=== PATIENT | male | born 1960 | race Caucasian/White ===

== ENCOUNTER 2019-07-20 13:42 | Emergency (ER) | payer OTHER ==
[2019-07-20] MEDS ORDERED: Sodium Chloride 0.9% 10 ML Syringe FLUSH PRN (14:59)
--- NOTE | 2019-07-20 15:08 | CR ---
Left femur: AP and lateral views of the left femur were obtained. Comparison: No earlier studies. Basicervical fracture is noted within the femoral neck. Medial joint space narrowing is noted within the knee. Bony irregularity is noted off the ischial tuberosity on the lateral view which appears to be due to fracture although age of this is indeterminate. No additional abnormality is seen. Impression: 1. Basicervical fracture within left femoral neck. 2. Fracture felt to be present within the ischial tuberosity seen on the lateral view, age of this is indeterminate. 3. Degenerative change within the knee. Diagnostic code #3 This report was dictated in [place] Standard Time
--- NOTE | 2019-07-20 15:08 | CR ---
Pelvis and left hip: AP view of the pelvis was obtained as well as AP and lateral views of the left hip. Basicervical fracture is seen within the left hip. Lateral view again shows a fracture within the fascial tuberosity. Mild joint space narrowing is seen within both hips. Sacroiliac joints are normal. Mild disc space narrowing and endplate spurring is seen within the lower lumbar spine. No additional abnormality is seen. Impression: 1. Basicervical fracture within the left hip. 2. Fracture within the initial tuberosity, age is indeterminate and please correlate with the patient's symptoms. 3. Mild degenerative change as noted above. Diagnostic code #3 This report was dictated in [place] Standard Time
--- NOTE | 2019-07-20 15:11 | EDM.PDOC ---
ED HPI GENERAL MEDICAL PROBLEM - General Chief Complaint: Lower Extremity Injury/Pain Stated Complaint: LEFT LEG INJURY Time Seen by Provider: 07/20/19 14:02 Source of Information: Reports: Patient, RN Notes Reviewed History Limitations: Reports: No Limitations - History of Present Illness INITIAL COMMENTS - FREE TEXT/NARRATIVE: Patient is a 58-year-old male who presents to the ED for the evaluation of left hip pain. The patient notes that around 8 this morning, he slipped on the ice, and fell onto his left hip. He states he had immediate pain, and crawled inside and crawled onto the couch at this time. He has not used any pain relievers at home, nor has he had any ice to the area as well. He states it is hard to walk on the hip, as it is very painful to do so. When he is sitting there, however the pain is at a 2 out of 10. Patient had some water at around 1 PM, he is not on any blood thinners, and he has not had any food today. Patient denies any cardiac or respiratory issues that he has, he has had a splenectomy, but denies any other surgeries. Left Hip Pain Score (Numeric/FACES): 3 - Related Data Allergies Allergy/AdvReac Type Severity Reaction Status Date / Time No Known Allergies Allergy Verified 07/20/19 14:07 Home Meds: Home Meds . [No Known Home Meds] 07/20/19 [History] Past Medical History Endocrine/Metabolic History: Reports: Hypothyroidism - Past Surgical History GI Surgical History: Reports: Other (See Below) Other GI Surgeries/Procedures: splenectomy, liver contusion & laceration Social & Family History - Family History Family Medical History: Noncontributory - Tobacco Use Smoking Status *Q: Never Smoker Second Hand Smoke Exposure: No - Caffeine Use Caffeine Use: Reports: Coffee - Recreational Drug Use Recreational Drug Use: No Review of Systems - Review of Systems Review Of Systems: Comprehensive ROS is negative, except as noted in HPI. Musculoskeletal: Reports: Joint Pain (Left hip pain) Skin: Denies: Bruising Neurological: Denies: Numbness, Tingling ED EXAM, GENERAL - Physical Exam Exam: See Below Exam Limited By: No Limitations General Appearance: Alert, WD/WN, No Apparent Distress Eye Exam: Bilateral Eye: EOMI, Normal Inspection, PERRL Nose: Normal Inspection Throat/Mouth: Normal Inspection, Normal Lips, Normal Teeth, Normal Gums, Normal Oropharynx, Normal Voice, No Airway Compromise Head: Atraumatic, Normocephalic Neck: Normal Inspection Respiratory/Chest: No Respiratory Distress, Lungs Clear, Normal Breath Sounds, No Accessory Muscle Use, Chest Non-Tender Cardiovascular: Normal Peripheral Pulses, Regular Rate, Rhythm, No Edema, No Murmur Peripheral Pulses: 3+: Radial (L), Radial (R), Dorsalis Pedis (L), Dorsalis Pedis (R) GI/Abdominal: Normal Bowel Sounds, Soft, Non-Tender, No Distention, No Mass Back Exam: Normal Inspection Extremities: Normal Inspection, Normal Capillary Refill, Limited Range of Motion (of left leg d/t pain). No: Pedal Edema, Joint Swelling Neurological: Alert, Oriented, Normal Cognition, No Motor/Sensory Deficits Psychiatric: Normal Affect, Normal Mood Skin Exam: Warm, Dry, Intact, Normal Color, No Rash EKG INTERPRETATION EKG Date: 07/20/19 Time: 15:29 Rhythm: Other (regular rhythm with junctional rhythm of p wave on top of t waves V2) Rate (Beats/Min): 112 [place]: LAD-Left [place] Deviation Comparison: NA - No Prior EKG EKG Interpretation Comments: Regular rhythm with junctional rhythm with P waves on top of T waves V2, first- degree AV block, QTC prolonged at 530, and LAD and -12. There was no prior EKG to compare to. This was reviewed with Dr. Gutierrez. Course - Vital Signs Last Recorded V/S: Last Vital Signs Temp 98.6 F 07/20/19 14:02 Pulse 97 07/20/19 14:02 Resp 16 07/20/19 14:02 BP 189/84 H 07/20/19 14:02 Pulse Ox 94 L 07/20/19 14:02 - Orders/Labs/Meds Orders: Active Orders 24 hr Category Date Time Status EKG Documentation Completion [RC] STAT Care 07/20/19 15:00 Ordered Peripheral IV Care [RC] . DIRECTED Care 07/20/19 15:00 Ordered CBC WITH AUTO DIFF [HEME] Stat Lab 07/20/19 14:59 Ordered COMPREHENSIVE METABOLIC PN,CMP [CHEM] Stat Lab 07/20/19 14:59 Ordered INR,PT,PROTHROMBIN TIME [COAG] Stat Lab 01/02/20 14:59 Ordered PTT,PARTIAL THROMBOPLSTIN TIME [COAG] Stat Lab 07/20/19 14:59 Ordered UA RFX MARIE AND CULT IF INDIC [URIN] Stat Lab 07/20/19 14:59 Ordered Sodium Chloride 0.9% [Saline Flush] Med 07/20/19 14:59 Ordered 10 ml FLUSH ASDIRECTED PRN Peripheral IV Insertion Adult [OM.PC] Stat Oth 07/20/19 14:59 Ordered Medication Orders Sodium Chloride (Saline Flush) 10 ml FLUSH ASDIRECTED PRN PRN Reason: Keep Vein Open Meds: Medications Generic Name Dose Route Start Last Admin Trade Name Freq PRN Reason Stop Dose Admin Sodium Chloride 10 ml 07/20/19 14:59 Saline Flush FLUSH ASDIRECTED PRN Keep Vein Open - Re-Assessments/Exams Free Text/Narrative Re-Assessment/Exam: 07/20/19 15:09 Patient presents to the ED for the evaluation of a left hip injury. Did order femur x-rays and left hip x-rays to be done, and this did demonstrate a femoral neck fracture of the left femur. Otherwise there are no abnormalities noted at the distal femur. These were reviewed by Dr. Gutierrez and myself. At this time we do not have Ortho coverage, so the patient will need to be transferred to [place] for management. I did order EKG, chest x-ray, IV be placed along with a CBC, CMP, PTT, PT/INR, UA for preop evaluation. Patient is not having any pain at this time, did not request any medications, however as he will need to be taken to [place] for management, he will likely need medications beforehand. Family would be carpal taking him via private vehicle if possible. At this time the patient's vitals are stable, and I do believe this would be an okay thing to do. Will call [facility] for further management and suggestions. 07/20/19 15:49 Dr. Jamison, orthopedic specialists at [facility] does except for management of the patient, requested the patient still stay nothing by mouth. Labs have been obtained, will give the patient some IV medication to make sure his pain level is okay during transfer, will fax lab results as we get them resulted back. EKG does show a junctional rhythm, there was no prior EKG to compare to. QT was prolonged, but there is no sign of acute ischemic change. Chest x-ray is within normal limits. Departure - Departure Time of Disposition: 15:51 Disposition: DC/Tfer to Acute Hospital 02 Condition: Fair Clinical Impression: Femoral neck fracture Qualifiers: Encounter type: initial encounter Fracture type: closed Laterality: left Qualified Code(s): S72.002A - Fracture of unspecified part of neck of left femur , initial encounter for closed fracture - Discharge Information *PRESCRIPTION DRUG MONITORING PROGRAM REVIEWED*: No *COPY OF PRESCRIPTION DRUG MONITORING REPORT IN PATIENT HEVER: No Referrals: PCP,None [Primary Care Provider] - Forms: ED Department Discharge Additional Instructions: You were evaluated in the ER today regarding your left hip injury. X-rays were taken, and demonstrated a femoral fracture of the left femur. You will need to present to [facility] in [place] for further management and orthopedic surgery as deemed necessary by the orthopedic surgeon, after your discharge from the hospital, you are to proceed directly to [place] for further management. Do not eat or drink anything on the way to [place], as you will be going to surgery. Sepsis Event Note - Evaluation Sepsis Screening Result: No Definite Risk - Focused Exam Vital Signs: Vital Signs Temp Pulse Resp BP Pulse Ox 07/20/19 14:02 98.6 F 97 16 189/84 H 94 L Date Exam was Performed: 07/20/19 Time Exam was Performed: 15:46 - My Orders Last 24 Hours: My Active Orders 07/20/19 14:59 CBC WITH AUTO DIFF [HEME] Stat COMPREHENSIVE METABOLIC PN,CMP [CHEM] Stat INR,PT,PROTHROMBIN TIME [COAG] Stat PTT,PARTIAL THROMBOPLSTIN TIME [COAG] Stat UA RFX MARIE AND CULT IF INDIC [URIN] Stat Sodium Chloride 0.9% [Saline Flush] 10 ml FLUSH ASDIRECTED PRN Peripheral IV Insertion Adult [OM.PC] Stat 07/20/19 15:00 EKG Documentation Completion [RC] STAT Peripheral IV Care [RC] . DIRECTED - Assessment/Plan Last 24 Hours: My Active Orders 07/20/19 14:59 CBC WITH AUTO DIFF [HEME] Stat COMPREHENSIVE METABOLIC PN,CMP [CHEM] Stat INR,PT,PROTHROMBIN TIME [COAG] Stat PTT,PARTIAL THROMBOPLSTIN TIME [COAG] Stat UA RFX MARIE AND CULT IF INDIC [URIN] Stat Sodium Chloride 0.9% [Saline Flush] 10 ml FLUSH ASDIRECTED PRN Peripheral IV Insertion Adult [OM.PC] Stat 07/20/19 15:00 EKG Documentation Completion [RC] STAT Peripheral IV Care [RC] . DIRECTED
--- NOTE | 2019-07-20 15:29 | CR ---
Chest: Portable view of the chest was obtained. Comparison: No prior chest x-ray. Heart size is within normal portable technique. Tortuous thoracic aorta is seen. Lungs are clear with no acute parenchymal change. Bony structures are grossly intact. Impression: 1. Nothing acute is seen on portable chest x-ray. Diagnostic code #1 This report was dictated in [place] Standard Time
[2019-07-20] MEDS ORDERED: Ondansetron 4 MG/2 ML SDV IVPUSH ONE (15:51)
[2019-07-20] MEDS ORDERED: HYDROmorphone 1 MG/ML Syringe IVPUSH ONE (15:51)
== END 2019-07-20 17:07 ==
LOC: JD.ED 13:42
DX: S72.002A Fracture of unspecified part of neck of left femur, initial encounter for closed fracture (principal); W01.0XXA Fall on same level from slipping, tripping and stumbling without subsequent striking against object, initial encounter
CPT/HCPCS: 36415; 71045; 73502; 73552; 80053; 81003; 85025; 85610; 85730; 93005; 96374; 96375; 99284; J1170; J2405; 93010